=== PATIENT | female | born 1955 | race Caucasian/White ===

== ENCOUNTER → 2020-05-08 | Outpatient (CLI) | payer OTHER, SELFPAY ==
[2020-05-11 15:35] LABS: HPV Reflexed? NOT INDICATED
== END | disposition home or self-care (01) ==
LOC: LABSPEC 11:34
PROVIDERS: Referring Provider Obstetrics & Gynecology; Visit Provider Obstetrics & Gynecology
DX: Z12.4 Encounter for screening for malignant neoplasm of cervix (principal)
CPT/HCPCS: 88175; G0145

== ENCOUNTER → 2022-10-09 | Outpatient (CLI) | payer OTHER, SELFPAY | END | disposition home or self-care (01) | LOC: LABSPEC 14:18 | PROVIDERS: Visit Provider Obstetrics & Gynecology | DX: R31.9 Hematuria, unspecified (principal) | CPT/HCPCS: 87086 ==

== ENCOUNTER → 2024-11-13 | Outpatient (CLI) | payer OTHER, SELFPAY ==
--- NOTE | 2024-11-13 12:57 | US_ITS ---
EXAM: US PELVIS TRANSABDOMINAL AND TRANSVAGINAL, COMPLETE CLINICAL INDICATION: ovarian cyst TECHNIQUE: Transabdominal and transvaginal pelvic ultrasound was performed with grayscale and color Doppler imaging. Transvaginal imaging was used for better evaluation of the endometrium and adnexa. COMPARISON: No relevant prior studies available. FINDINGS: UTERUS/CERVIX: Minimal fluid is present within the endometrial canal which is nonspecific. Anteverted. There is no uterine mass. The uterus measures 6.8 x 3.9 x 2.2 cm. The endometrial stripe measures 0.3 cm in thickness. RIGHT OVARY: There are right ovarian cysts and/or follicles, the largest measuring up to 1.7 cm. Blood flow is present in the right ovary. The right ovary measures 2.9 x 2.4 x 2.2 cm. LEFT OVARY: No significant abnormality. Blood flow is present in the left ovary. The left ovary measures 2.3 x 1.3 x 1.0 cm. FREE FLUID: No free fluid is identified in the cul-de-sac. BLADDER: The urinary bladder appears normal. US/Pelvic w/ Transvaginal IMPRESSION: 1. There are right ovarian cysts and/or follicles, the largest measuring up to 1.7 cm. SRU Consensus Conference guidelines (Llanos, et. al. Radiology 2019;293:359-371) suggest that this simple cyst is almost certainly benign and no follow-up of this cyst is necessary. 2. Minimal fluid is present within the endometrial canal which is nonspecific. Electronically Signed: Geovany Pitt DO at 22:09 EST ,
== END | disposition home or self-care (01) ==
PROVIDERS: PCP Internal Medicine; Referring Provider Obstetrics & Gynecology; Visit Provider Obstetrics & Gynecology
DX: N83.201 Unspecified ovarian cyst, right side (principal)
CPT/HCPCS: 76830; 76856